=== PATIENT | female | born 1955 | race Caucasian/White ===

== ENCOUNTER 2020-01-28 09:37 | Outpatient (CLI) | payer OTHER, SELFPAY ==
--- NOTE | 2020-01-28 09:49 | US_ITS ---
WS: [id number] RIGHT UPPER QUADRANT ULTRASOUND HISTORY: HX OF PANCREATIC CYSTS COMPARISON: None available. Liver: 14.1 cm in length. Normal size liver. No bile duct dilatation or mass. Gallbladder: Normally distended gallbladder with no stones or wall thickening. CBD: 0.5 cm Pancreas: Mildly echogenic pancreas with lobulated borders. No pseudocyst. Pancreatic duct is normal. Right kidney: 10.4 cm in length. Normal size and echogenicity. No hydronephrosis or mass. Aorta and IVC: Unremarkable abdominal aorta and IVC. No ascites. US/US abdomen limited [id number] IMPRESSION: 1. Echogenic pancreas consistent with chronic pancreatitis. Cannot confirm torres creatic cyst or pseudocyst. For further evaluation CT evaluation may be helpful if these areas need to be followed by imaging. 2. Otherwise negative.
== END 2020-01-28 09:38 | disposition home or self-care (01) ==
LOC: RAD 09:43
PROVIDERS: PCP Nurse Practitioner; Visit Provider Nurse Practitioner
DX: Z87.898 Personal history of other specified conditions (principal)
CPT/HCPCS: 76705

== ENCOUNTER 2020-02-10 08:09 | Outpatient (CLI) | payer OTHER, SELFPAY ==
--- NOTE | 2020-02-10 08:14 | MM_ITS ---
WS: [id number] BILATERAL DIGITAL SCREENING MAMMOGRAPHY WITH CAD CLINICAL INFORMATION: SCREENING HISTORY: Screening mammogram. No current complaints. COMPARISON: None. TECHNIQUE: Bilateral CC and MLO views. FINDINGS: Scattered fibroglandular densities bilaterally. No suspicious focal mass, asymmetry, calcifications, or architectural distortion. No evidence of malignancy. Lucent centered calcifications. Biopsy clip l eft breast. MM/[id number] IMPRESSION: BI-RADS: 2-Benign FOLLOW UP: 1 Year Follow-up Recommend return to annual screening mammography.
== END 2020-02-10 08:10 | disposition home or self-care (01) ==
LOC: RADSHAW 08:11
PROVIDERS: PCP Nurse Practitioner; Visit Provider Nurse Practitioner
DX: Z12.31 Encounter for screening mammogram for malignant neoplasm of breast (principal)
CPT/HCPCS: 77067

== ENCOUNTER 2021-05-24 09:33 | Outpatient (CLI) | payer OTHER, SELFPAY ==
--- NOTE | 2021-05-24 09:41 | MM_ITS ---
WS: [id number] BILATERAL SCREENING DIGITAL MAMMOGRAM WITH CAD HISTORY: SCREENING COMPARISON: 02/10/2020, 09/03/2018 and 05/07/2016 Bilateral CC and MLO views submitted. Computer aided detection analyzed. Breast composition: There are scattered areas of fibroglandular density. No suspicious masses, microc alcifications or architectural distortion. Intramammary lymph node in the posterior RIGHT breast. The re is a nodule with an adjacent biopsy clip 12:00 middle depth LEFT breast. There are benign calcific ations otherwise in each breast. MM/[id number] IMPRESSION: BI-RADS: 2-Benign FOLLOW UP: 1 Year Follow-up
== END 2021-05-24 09:34 | disposition home or self-care (01) ==
LOC: RADSHAW 09:37
PROVIDERS: PCP Nurse Practitioner; Visit Provider Nurse Practitioner
DX: Z12.31 Encounter for screening mammogram for malignant neoplasm of breast (principal)
CPT/HCPCS: 77067

== ENCOUNTER 2021-07-02 09:40 | Outpatient (CLI) | payer OTHER, SELFPAY ==
--- NOTE | 2021-07-02 09:46 | US_ITS ---
WS: [id number] RIGHT UPPER QUADRANT ULTRASOUND HISTORY: ELEVATED LIVER FUNCTION LABS COMPARISON: 01/28/2020 Liver: 15.4 cm in length. Normal size liver. No bile duct dilatation or mass. Portal Vein: Normal hepatopetal flow with monophasic waveform. Gallbladder: Normally distended gallbladder with no stones or wall thickening. CBD: 0.3 cm Pancreas: Pancreatic tail is not visualized. Remaining pancreas is negative. Right kidney: 8.8 cm in length. Normal size and echogenicity. No hydronephrosis or mass. Aorta and IVC: Unremarkable abdominal aorta and IVC. No ascites. US/US abdomen limited [id number] IMPRESSION: 1. Normal gallbladder. 2. Normal size liver with no bile duct dilatation. 3. No abnormality identified.
== END 2021-07-02 09:41 | disposition home or self-care (01) ==
PROVIDERS: PCP Nurse Practitioner; Visit Provider Nurse Practitioner
DX: R94.5 Abnormal results of liver function studies (principal)
CPT/HCPCS: 76705

== ENCOUNTER → 2021-09-19 13:28 | Outpatient (BNVA) | payer OTHER, SELFPAY | PROVIDERS: PCP Nurse Practitioner; Referring Provider Nurse Practitioner; Visit Provider Internal Medicine | DX: R94.6 Abnormal results of thyroid function studies (principal); K58.9 Irritable bowel syndrome, unspecified; F32.A Depression, unspecified; Z87.891 Personal history of nicotine dependence | CPT/HCPCS: 36415; 83516; 84439; 84443; 84480; 86376; 86800; 99204 ==

== ENCOUNTER → 2022-01-21 08:00 | Outpatient (BNVA) | payer OTHER, SELFPAY | PROVIDERS: PCP Nurse Practitioner; Referring Provider Nurse Practitioner; Visit Provider Podiatrist Foot & Ankle Surgery | DX: M21.611 Bunion of right foot (principal); M20.41 Other hammer toe(s) (acquired), right foot; M20.42 Other hammer toe(s) (acquired), left foot; Q82.8 Other specified congenital malformations of skin; G57.62 Lesion of plantar nerve, left lower limb | CPT/HCPCS: 73630; 99203; 99204 ==

== ENCOUNTER 2022-02-11 06:43 | Day surgery (SDC) | payer OTHER, SELFPAY ==
[2022-02-08 09:15] VITALS: BMI 29.7
[2022-02-11 07:08] VITALS: BP 156/89; PULSE 89; RESP 18; TEMP 36.2; O2SAT 97
--- NOTE | 2022-02-11 07:26 | P.ANESASSM_ITS ---
Pre-Anesthetic Assessment Height/Weight: Height 1.7 m Weight 86.183 kg Temp Pulse Resp BP Pulse Ox O2 Del Method 97.1 F L 89 18 156/89 97 02/11/22 07:08 02/11/22 07:08 02/11/22 07:08 02/11/22 07:08 02/11/22 07:08 02/11/22 07:08 Preop Diagnosis: polyps Operation Date: 02/11/22 08:15 Proposed Procedures p Colonoscopy 71529,K58.1,Z86.010(Not Applicable) - Meir Angeles MD Familial anesthetic complications: Has recall during last colonoscopy 5 years ago Was Beta Martha taken within 24 hours: N/A Was Clonidine taken within 24 hours: N/A Last intake: Intake Last Liquid Date 02/10/22 Last Liquid Time 20:00 Last Solid Date 02/09/22 Last Solid Time 16:00 Social No alcohol and No tobacco Exam alert, oriented x 3, clear to auscultation bilaterally and regular rate & rhythm Airway Submandibular: within normal limits Cervical ROM: within normal limits Mallampati: Class I Dentition: full History/ROS No significant complaints Pulmonary None reported CV/HEM None reported None reported Hepatic None reported GI IBS Metabolic None reported Musc/skel Lower Back Pain Neuropsych Depression Anesthetic Plan ASA status: 2 Anesthesia: Anesthesia Evaluation, General and MAC Other: I discussed with the patient risks, goals, and benefits of MAC and general anesthesia. We discussed spectrum of MAC anesthesia including conversion to general as well as possibility of recall of intraoperative stimuli including discomfort/pain. Patient agrees to proceed with MAC. Risk of > 500 ml blood loss (7ml/kg in children): No Medications/Allergies Home Medications Medication Instructions Recorded Confirmed Last Taken Type aripiprazole 5 mg tablet (Abilify) 5 mg PO DAILY 09/19/21 02/08/22 02/10/22 History buspirone 10 mg tablet 10 mg PO BID 09/19/21 02/08/22 02/10/22 History duloxetine 60 mg capsule,delayed 60 mg PO BID 09/19/21 02/08/22 02/10/22 History release prazosin 5 mg capsule 10 mg PO DAILY 09/19/21 02/08/22 02/10/22 History fluticasone propionate 50 1 spray intranasal DAILY 11/13/21 02/08/22 02/10/22 History mcg/actuation nasal spray,suspension (Flonase Allergy Relief) peg 3350-electrolytes 236 240 ml PO Q10M #4,000 mL 01/01/22 02/08/22 02/10/22 Rx gram-22.74 gram-6.74 gram-5.86 gram solution (Golytely) Custom Accommodated Insoles with #1 ea 01/21/22 02/08/22 02/10/22 Rx shoes linaclotide 145 mcg capsule 145 mcg PO DAILY #90 caps 01/28/22 02/08/22 02/10/22 Rx acetaminophen 325 mg capsule 1,000 mg PO QID PRN Pain 02/08/22 02/11/22 02/09/22 History (Tylenol) Allergies Allergy/AdvReac Type Severity Reaction Status Date / Time Iodinated Contrast Media Allergy Unknown Unknown Verified 02/08/22 09:06 iodine Allergy brown mask Verified 02/08/22 09:06 on her povidone-iodine Allergy Unknown Verified 02/08/22 09:06 [From Betadine] [facility] Anesthesia Medical History Depression IBS (irritable bowel syndrome) Family History Father No problems noted. Mother Stroke Aphagia Hypertension Social History Smoking and tobacco status: former smoker Quit status (tobacco): has quit using tobacco Second hand smoke exposure: No Smoking risk assessment/counseling performed?: No Alcohol intake: never Desire information about alcohol rehabilitation?: No Counseling given: No Desire information about substance/drug rehabilitation?: No Counseling given: No Adopted: No Caregiver/support person: No Lives independently: Yes Household members: spouse Housing: House Marital status: Number of children: 3 Highest education level completed: High School Graduate service: Yes Current occupational status: disabled History of recent travel: Yes Data Anesthesia Cardiac Studies: No Data to Display
[2022-02-11] MEDS: sodium chloride 0.9% 1,000 ML 30 ML IV (07:28)
[2022-02-11] MEDS: acetaminophen 1,000 MG/100 ML PIGGYBACK 400 MG IV (08:10)
--- NOTE | 2022-02-11 08:11 | W.PM.OPSFHP ---
Same Day Surgery H&P Indication for Procedure/HPI DATE OF PROCEDURE: February 11, 2022 CHIEF COMPLAINT/INDICATIONFOR SURGICAL PROCEDURE: Personal history of colon polyp PREOP DIAGNOSIS: polyps PLANNED PROCEDURE: Operation Date: 02/11/22 08:15 Proposed Procedures p Colonoscopy 02360,K58.1,Z86.010(Not Applicable) - Meir Angeles MD Medications/Allergies* Home Medications Medication Instructions Recorded Confirmed Type aripiprazole 5 mg tablet (Abilify) 5 mg PO DAILY 09/19/21 02/08/22 History buspirone 10 mg tablet 10 mg PO BID 09/19/21 02/08/22 History duloxetine 60 mg capsule,delayed 60 mg PO BID 09/19/21 02/08/22 History release prazosin 5 mg capsule 10 mg PO DAILY 09/19/21 02/08/22 History fluticasone propionate 50 1 spray intranasal DAILY 11/13/21 02/08/22 History mcg/actuation nasal spray,suspension (Flonase Allergy Relief) acetaminophen 325 mg capsule 1,000 mg PO QID PRN Pain 02/08/22 02/11/22 History (Tylenol) Allergies/Adverse Reactions Allergy/AdvReac Type Severity Reaction Status Date / Time Iodinated Contrast Media Allergy Unknown Unknown Verified 02/08/22 09:06 iodine Allergy brown mask Verified 02/08/22 09:06 on her povidone-iodine Allergy Unknown Verified 02/08/22 09:06 [From Betadine] Current Medications: Generic Name Dose Route Start Last Admin Trade Name Freq PRN Reason Stop Dose Admin Sodium Chloride 1,000 mls @ 30 mls/hr 02/11/22 07:00 02/11/22 07:28 Sodium Chloride 0.9% IV 30 mls/hr .Q24H LUCINDA Administration Pertinent History/Comorbid Conditions* Medical History (Updated 12/26/21 @ 10:12 by Meir Angeles MD) Depression IBS (irritable bowel syndrome) Family History (Updated 09/19/21 @ 13:47 by Nayeli Gama LPN) Father Aphagia Mother Hypertension Mother Stroke Mother Social History Smoking and tobacco status: former smoker Quit status (tobacco): has quit using tobacco Second hand smoke exposure: No Smoking risk assessment/counseling performed?: No Alcohol intake: never Desire information about alcohol rehabilitation?: No Counseling given: No Desire information about substance/drug rehabilitation?: No Counseling given: No Adopted: No Caregiver/support person: No Lives independently: Yes Household members: spouse Housing: House Marital status: Number of children: 3 Highest education level completed: High School Graduate service: Yes Current occupational status: disabled History of recent travel: Yes Pertinent Exam Findings alert, oriented x 3, clear to auscultation bilaterally, regular rate & rhythm, operative site marked and procedure specific exam findings Recommendations Surgery/Procedure today Coding Level of Care Code Acute Public Health Technician for Jesus Alvarez
[2022-02-11 09:15] VITALS: BP 149/80; PULSE 72; RESP 21; TEMP 36.2; O2SAT 95
--- NOTE | 2022-02-11 09:18 | ANE.PACU2 ---
Inpatient post-anesthesia follow up: Airway intact: Yes Vital signs: Temperature 97.1 F Pulse Rate 89 Respiratory Rate 18 Blood Pressure 156/89 Pulse Oximetry 97 Oxygen Delivery Me thod Room Air Oxygen Flow Rate Fraction of Inspir ed Oxygen Hydration adequate: Yes Nausea and vomiting: No Pain level: 1 Mental status: Baseline
[2022-02-11 09:23] VITALS: BP 151/73; PULSE 66; RESP 18; O2SAT 94
[2022-02-11 09:32] VITALS: BP 119/88; PULSE 70; RESP 18; O2SAT 98
== END 2022-02-11 09:49 | disposition home or self-care (01) ==
PROVIDERS: PCP Nurse Practitioner; Visit Provider Internal Medicine
PROC: 0DJD8ZZ Inspection of Lower Intestinal Tract, Via Natural or Artificial Opening Endoscopic (ICD-10-PCS; CPT 45378; principal; 2022-02-11 08:15)
DX: Z12.11 Encounter for screening for malignant neoplasm of colon (principal); Z86.010 Personal history of colon polyps; K58.1 Irritable bowel syndrome with constipation; Z87.891 Personal history of nicotine dependence
CPT/HCPCS: 45378; J2704; J7030

== ENCOUNTER 2022-07-03 12:07 | Outpatient (CLI) | payer OTHER, SELFPAY ==
--- NOTE | 2022-07-03 12:21 | CT_ITS ---
WS: [id number] CT HEAD TECHNIQUE: Noncontrast CT of the head obtained from the skullbase to the vertex. CLINICAL INFORMATION: NEW ONSET VERTIGO COMPARISON: None. DLP: 1018.[address] scans at [facility] use at least one of these dose optimization techniques: automated e xposure control; mA and/or kV adjustment per patient size (includes targeted exams where dose is matc hed to clinical indication); or iterative reconstruction. FINDINGS: No evidence of intracranial hemorrhage or mass effect. Ventricular system and basal cisterns are george nt. Mild small vessel changes with moderate parenchymal volume loss worse in the frontal lobes bilate rally. No extra-axial fluid collections. No evidence of mass or mass effect. Vascular calcification. Paranasal sinuses and mastoid air cells are well aerated. .Normal visualized soft tissues. CT/CT head wo con* [id number] IMPRESSION: 1. No evidence of intracranial hemorrhage or mass effect. 2. Mild small vessel changes with moderate parenchymal volume loss worse in th e frontal lobes bilaterally. 3. No acute intracranial findings.
== END 2022-07-03 12:08 | disposition home or self-care (01) ==
LOC: RAD 12:12
PROVIDERS: PCP Nurse Practitioner; Visit Provider Nurse Practitioner
DX: R42 Dizziness and giddiness (principal)
CPT/HCPCS: 70450

== ENCOUNTER 2022-07-22 13:22 | Outpatient (CLI) | payer OTHER, SELFPAY ==
--- NOTE | 2022-07-22 13:36 | XR_ITS ---
WS: [id number] DEXA (DUAL ENERGY X-RAY ABSORPTIOMETRY) Bone mineral density was performed using a [employer] machine. HISTORY: OSTEOPOROSIS SCREENING COMPARISON: None available. Lumbar spine BMD (L1-L4): 1.121 g/cm2 T score: -0.5 Z score: 0.0 Total hip BMD: Left: 0.726 g/cm2. T score: -2.2 Z score: -1.8 Right: 0.808 g/cm2. T score: -1.6 Z score: -1.1 10 year probability of a major osteoporotic fracture is 34.8%. LEFT curvature lumbar spine with asymmetric disc space narrowing along the concavity. XR/XR DEXA axial skeleton* [id number] IMPRESSION: OSTEOPENIA based upon the WHO classification for females.
== END 2022-07-22 13:23 | disposition home or self-care (01) ==
LOC: RAD 13:24
PROVIDERS: PCP Nurse Practitioner; Visit Provider Nurse Practitioner
DX: Z13.820 Encounter for screening for osteoporosis (principal); M85.80 Other specified disorders of bone density and structure, unspecified site
CPT/HCPCS: 77080

== ENCOUNTER 2023-10-13 10:53 | Outpatient (CLI) | payer OTHER, SELFPAY ==
--- NOTE | 2023-10-13 11:03 | MM_ITS ---
WS: [id number] BILATERAL SCREENING DIGITAL TOMOSYNTHESIS MAMMOGRAM WITH CAD HISTORY: SCREENING COMPARISON: 05/24/2021, 02/10/2020 Bilateral CC and MLO views with tomosynthesis and synthetic mammography submitted. Computer aided det ection analyzed. Breast composition: There are scattered areas of fibroglandular density. No suspicious masses, microc alcifications or architectural distortion. Biopsy clip in the central LEFT breast. There is no associ ated mass which is stable. There are benign calcifications in each breast. MM/[place] [id number] IMPRESSION: BI-RADS: 2-Benign FOLLOW UP: 1 Year Follow-up
== END 2023-10-13 10:54 | disposition home or self-care (01) ==
LOC: RAD 10:54
PROVIDERS: PCP Nurse Practitioner; Visit Provider Nurse Practitioner
DX: Z12.31 Encounter for screening mammogram for malignant neoplasm of breast (principal); R92.323 Mammographic fibroglandular density, bilateral breasts; R92.1 Mammographic calcification found on diagnostic imaging of breast
CPT/HCPCS: 77063; 77067

== ENCOUNTER → 2024-01-26 10:13 | Outpatient (BNVA) | payer OTHER, SELFPAY | PROVIDERS: PCP Nurse Practitioner; Visit Provider Nurse Practitioner | DX: M65.331 Trigger finger, right middle finger (principal) | CPT/HCPCS: 99204 ==

== ENCOUNTER 2024-02-05 13:26 | Outpatient (CLI) | payer OTHER, SELFPAY ==
[2024-02-05 14:00] LABS: Bilirubin Urine Negative (Negative); Blood Urine Negative (Negative); Glucose Urine UA Negative (Normal); Ketones Urine Negative (Negative); Leukocyte Esterase Urine Negative (Negative); Nitrate Urine Negative (Negative); Protein Urine Negative (Negative); Specific Gravity, Urine 1.014 (1.005-1.030); Urine Appearance Clear (CLEAR); Urine Color Dark Yellow (Yellow); pH Urine 5.5 (5-7)
[2024-02-05 14:00] LABS: Basophils # 0.1 10^3/uL (0.0-0.1); Eosinophils # 0.2 10^3/uL (0.0-0.8); Eosinophils % 2.3 %; Hematocrit 40.8 % (36-47); Lymphocytes # 2.3 10^3/uL (0.8-4.8); Lymphocytes % 29.6 %; Mean Corpuscular HGB Conc 33.1 g/dL (30-55); Mean Corpuscular Hemoglobin 30.6 pg (27-33); Mean Corpuscular Volume 92.5 fl (85-98); Mean Platelet Volume 10.4 fL (7.4-10.4); Monocytes # 0.7 10^3/uL (0.2-0.9); Monocytes % 9.1 %; Neutrophils % 57.7 %; Nucleated Red Blood Cells % 0 %; Platelet Count 245 10^3/cmm (157-399); Red Blood Count 4.41 10^6/uL (3.85-5.65); Red Cell Distribution Width 12.9 % (12.1-15.1)
[2024-02-05 14:04] LABS: Alanine Aminotransferase 21 U/L (0-33); Albumin Level 3.8 g/dL (3.5-5.2); Alkaline Phosphatase 45 U/L (35-105); Anion Gap 13.6 (5-19); Aspartate Amino Transferase 18 U/L (0-32); Blood Urea Nitrogen 20 mg/dL (8-23); Calcium 8.6 mg/dL (8.5-10.5); Carbon Dioxide 27 mmol/L (22-29); Chloride 104 mmol/L (98-107); Globulin 2.8 g/dL (1.3-4.6); Glomerular Filtration Rate 49.5 mL/min (90-130); Glucose 104 mg/dL (65-115); Osmolality Calculated 293 mOsm/kg (285-295); Potassium 4.6 mmol/L (3.5-5.1); Sodium 140 mmol/L (136-145); Total Bilirubin 0.2 mg/dL (0.15-1.2); Total Protein 6.6 g/dL (6.6-8.7)
[2024-02-05 14:05] LABS: Add Urine Microscopic? YES; Bacteria Urine None Seen /hpf; Hyaline Casts Urine 1.21 /lpf; RBC Urine 0-2 /hpf (0-2); Squamous Epithelial Cell Urine 0-5 /hpf (0-5); WBC Urine 0-5 /hpf (0-5)
== END 2024-02-05 13:27 | disposition home or self-care (01) ==
LOC: LAB 13:26
PROVIDERS: PCP Nurse Practitioner; Visit Provider Nurse Practitioner
DX: M79.643 Pain in unspecified hand (principal)
CPT/HCPCS: 36415; 80053; 81001; 85025

== ENCOUNTER 2024-02-10 05:43 | Day surgery (SDC) | payer OTHER, SELFPAY ==
[2024-02-10] VITALS (10 sets, daily range): BP systolic 100–135; BP diastolic 67–88; PULSE 71–83; RESP 14–22; TEMP 36.1–36.6; O2SAT 93–98; BMI 34.0
[2024-02-10] MEDS: acetaminophen 1,000 MG/100 ML PIGGYBACK 400 MG IV (06:16)
[2024-02-10] MEDS: sodium chloride 0.9% 1,000 ML 30 ML IV (06:16)
--- NOTE | 2024-02-10 06:33 | ANES.PREANE2 ---
Pre-Anesthetic Assessment Height/Weight: Height 5 ft 7 in Weight 217 lb Temp Pulse Resp BP Pulse Ox O2 Del Method 97.4 F L 80 18 135/85 98 Room Air 02/10/24 06:06 02/10/24 06:06 02/10/24 06:06 02/10/24 06:06 02/10/24 06:06 02/10/24 06:06 Preop Diagnosis: Trigger finger Operation Date: 02/10/24 07:00 Proposed Procedures p right hand long finger trigger finger release(Right) - Shaista Solano MD Was Beta Martha taken within 24 hours: Yes Was Clonidine taken within 24 hours: N/A Last intake: Intake Last Liquid Date 02/09/24 Last Liquid Time 21:00 Last Solid Date 02/09/24 Last Solid Time 20:00 Social No alcohol and No tobacco Exam alert, oriented x 3, clear to auscultation bilaterally and regular rate & rhythm Airway Submandibular: within normal limits Cervical ROM: within normal limits Mallampati: Class II Dentition: other (Few missing teeth) Anesthetic Plan ASA status: 2 Anesthesia: General Other: Patient reports being slow to wake up during surgery, insistent she does not want twilight anesthesia NPO since midnight History of hypertension, on propranolol. AM dose taken Patient does have a bladder stimulator in her lower back. Will remain on for procedure Labs reviewed 02/04 and acceptable for procedure METs greater than 4 Plan for general anesthesia with LMA and local via surgeon Medications/Allergies Home Medications Medication Instructions Recorded Confirmed Last Taken Type buspirone 10 mg tablet 10 mg PO BID 09/19/21 02/09/24 02/09/24 History duloxetine 60 mg capsule,delayed 60 mg PO BID 09/19/21 02/09/24 02/09/24 History release prazosin 5 mg capsule 10 mg PO DAILY 09/19/21 02/09/24 02/08/24 History Custom Accommodated Insoles with #1 ea 01/21/22 01/26/24 02/10/22 Rx shoes acetaminophen 325 mg capsule 1,000 mg PO QID PRN Pain 02/08/22 02/09/24 02/09/22 History (Tylenol) acyclovir 200 mg capsule 200 mg PO QID 02/09/24 02/09/24 02/09/24 History bupropion HCl 150 mg 24 hr tablet, 150 mg PO QAM 02/09/24 02/09/24 02/09/24 History extended release propranolol 10 mg tablet 10 mg PO BID 02/09/24 02/10/24 02/10/24 06:20 History Allergies Allergy/AdvReac Type Severity Reaction Status Date / Time Iodinated Contrast Media Allergy Unknown Unknown Verified 01/26/24 10:31 iodine Allergy brown mask Verified 01/26/24 10:31 on her povidone-iodine Allergy Unknown Verified 01/26/24 10:31 [From Betadine] Current Medications Generic Name Dose Route Start Last Admin Trade Name Freq PRN Reason Stop Dose Admin Sodium Chloride 1,000 mls @ 30 mls/hr 02/10/24 06:00 02/10/24 06:16 Sodium Chloride 0.9% IV 02/11/24 05:59 30 mls/hr .Q24H LUCINDA Administration PFSH Anesthesia Medical History (Updated 02/01/24 @ 14:44 by RANI Velarde) Trigger finger, right middle finger Depression IBS (irritable bowel syndrome) Family History Father No problems noted. Mother Stroke Aphagia Hypertension Social History Smoking and tobacco/nicotine status: former use of tobacco/nicotine Quit status (tobacco/nicotine): has quit using Second hand smoke exposure: No Alcohol intake: never Substance/Drug Use: current Substance/Drug use frequency: few times a month Adopted: No Caregiver/support person: No Lives independently: Yes Household members: spouse Housing: House Marital status: Number of children: 3 Highest education level completed: High School Graduate service: Yes Current occupational status: disabled Data Anesthesia Cardiac Studies: No Data to Display
--- NOTE | 2024-02-10 06:53 | P.HPUD_ITS ---
Surgery/Procedure H&P Update DATE OF PROCEDURE: February 10, 2024 DATE H&P PERFORMED: 01/26/24 H&P UPDATE INFORMATION: I have reviewed H&P completed within last 30 days, I have examined patient prior to procedure, No changes to prior documentation and H&P is in [facility] EMR on date indicated PREOP DIAGNOSIS: Trigger finger PLANNED PROCEDURE: Operation Date: 02/10/24 07:00 Proposed Procedures p right hand long finger trigger finger release(Right) - Shaista Solano MD Related Problem List Diagnoses (1) Trigger finger, right middle finger:
[2024-02-10] MEDS: ceFAZolin 2,000 mg SDV 2000 MG IVP (06:59)
[2024-02-10] MEDS: BUPivacaine 0.5% INJ 30 mL XX (07:30)
--- NOTE | 2024-02-10 07:46 | P.OP_ITS ---
Operative Report Date of procedure: February 10, 2024 Pre-op diagnosis: Right long finger triggering Post-op diagnosis: Right long finger triggering Post-op findings: Significant thickening of the A1 prudence Procedure done: Right long finger trigger release Implants: None Specimens removed/disposition: None Surgeon: Shaista Solano MD Special Education Supervisor: None Anesthesia: General (Per LMA, ASA 2) Estimated blood loss (mL): 2 Tourniquet time (min): 13 (At 250 mmHg) IV fluids (mL): 500 Urine output (mL): 0 (No Godoy) Complications: None Findings: Significant inflammation around the A1 prudence with thickening Condition: stable Disposition: PACU (Then return to same-day surgery for discharge to home) Brief History: This 68-year-old woman presented to the office complaining of triggering of her right long finger. About 2 months prior to being seen. The pain started below her long finger and she stated the finger began sticking. After evaluation and discussion in the office, and given how painful the trigger finger was, surgical intervention was discussed with the patient. She had been taking anti- inflammatory as well as doing stretches without success. Therefore, surgery was discussed and approved. The patient wished to proceed. Consents were signed and questions were answered. Procedure: Patient was brought to the operating theater. She was placed on the operating room table. A general anesthetic per LMA was administered, ASA 2, uneventfully. Additionally, Ancef 2 g was given preoperatively and prophylactically. The arm was exsanguinated, and tourniquet was elevated to 250 mmHg for a total tourniquet time of 13 minutes. Surgical pause was performed prior to commencement of the surgical procedure. At the time of the surgical pause we identified the site and side of surgery. We also identified the patient's identity and appropriate administration of IV antibiotics. Following the surgical pause, an incision was made along the distal palmar crea se beneath the long finger. Dissection continued through the skin to the subcutaneous tissues using a scalpel. Blunt dissection was then utilized to spread soft tissues and allow access to the A1 prudence. It was then incised longitudinally and sharply using a knife. This was accomplished without difficulty and atraumatically. Once the A1 prudence was released, flexor tendons were brought up out of the wound and evaluated. There were no gross masses on the tendons, but there was some fraying consistent with triggering. Tendons were returned to normal position. We then irrigated the wound and subsequently closed it with 3-0 nylon with an interrupted mattress type suture. Following closure of the wound, the wound was irrigated and injected with bupivacaine into the subcutaneous tissues as a local anesthetic. Sterile dressing was then placed consisting of Dermabond, OpSite, fluffed fluffs, sterile soft roll, and an Kervin wrap. The patient was returned to recovery in satisfactory condition. She will be discharged home to follow-up in the office. There were no complications and no specimens. Related Problem List Diagnoses (1) Trigger finger, right middle finger:
--- NOTE | 2024-02-10 08:55 | ANE.PACU2 ---
Inpatient post-anesthesia follow up: Airway intact: Yes Vital signs: Temperature 97.9 F Pulse Rate 72 Respiratory Rate 17 Blood Pressure 114/67 Pulse Oximetry 97 Oxygen Delivery Me thod Room Air Oxygen Flow Rate Fraction of Inspir ed Oxygen Hydration adequate: Yes Nausea and vomiting: No Pain level: 1 Mental status: Baseline
== END 2024-02-10 08:55 | disposition home or self-care (01) ==
PROVIDERS: PCP Nurse Practitioner; Visit Provider Specialist
PROC: (CPT 26055; principal; 2024-02-10 07:00)
DX: M65.331 Trigger finger, right middle finger (principal); I10 Essential (primary) hypertension; F32.A Depression, unspecified; Z87.891 Personal history of nicotine dependence
CPT/HCPCS: 26055; J0131; J0690; J1100; J2405; J2704; J3010; J3490; J7030

== ENCOUNTER → 2024-02-23 10:15 | Outpatient (BNVA) | payer OTHER, SELFPAY | PROVIDERS: PCP Nurse Practitioner; Visit Provider Nurse Practitioner | DX: Z98.890 Other specified postprocedural states (principal) | CPT/HCPCS: 99024 ==

== ENCOUNTER → 2024-03-16 11:06 | Outpatient (BNVA) | payer OTHER, SELFPAY | PROVIDERS: PCP Nurse Practitioner; Referring Provider Nurse Practitioner; Visit Provider Specialist | DX: G56.03 Carpal tunnel syndrome, bilateral upper limbs (principal) | CPT/HCPCS: 95910 ==

== ENCOUNTER → 2024-04-26 09:37 | Outpatient (BNVA) | payer OTHER, SELFPAY | PROVIDERS: PCP Nurse Practitioner; Visit Provider Specialist | DX: G56.03 Carpal tunnel syndrome, bilateral upper limbs; Z01.818 Encounter for other preprocedural examination | CPT/HCPCS: 36415; 73110; 80053; 81001; 85025; 99215 ==

== ENCOUNTER 2024-05-13 05:48 | Day surgery (SDC) | payer OTHER, SELFPAY ==
[2024-05-13] VITALS (9 sets, daily range): BP systolic 96–164; BP diastolic 61–95; PULSE 67–74; RESP 16–18; TEMP 36.3–36.4; O2SAT 95–100; BMI 36.2
[2024-05-13] MEDS: acetaminophen 1,000 MG/100 ML PIGGYBACK 400 MG IV (06:20)
[2024-05-13] MEDS: sodium chloride 0.9% 1,000 ML 30 ML IV (06:30)
--- NOTE | 2024-05-13 07:02 | W.PM.OPSUD ---
Surgery/Procedure H&P Update DATE OF PROCEDURE: May 13, 2024 DATE H&P PERFORMED: 04/26/24 H&P UPDATE INFORMATION: I have reviewed H&P completed within last 30 days, I have examined patient prior to procedure, No changes to prior documentation and H&P is in [facility] EMR on date indicated PLANNED PROCEDURE: Operation Date: 05/13/24 07:00 Proposed Procedures p Carpal Tunnel Release(Right) - Shaista Solano MD Related Problem List Diagnoses (1) Carpal tunnel syndrome on right:
[2024-05-13] MEDS: CELEcoxib 200 mg Capsule 400 MG PO (07:04)
[2024-05-13] MEDS: ceFAZolin 2,000 mg SDV 2000 MG IVP (07:04)
--- NOTE | 2024-05-13 07:06 | ANES.PREANE2 ---
Pre-Anesthetic Assessment Height/Weight: Height 1.65 m Weight 98.883 kg Operation Date: 05/13/24 07:00 Proposed Procedures p Carpal Tunnel Release(Right) - Shaista Solano MD Familial anesthetic complications: Slow to wake Resistant to twilight anesthesia - I still feel everything Was Beta Martha taken within 24 hours: N/A Was Clonidine taken within 24 hours: N/A Last intake: > 8 hrs Social No alcohol and No tobacco Exam alert, oriented x 3, clear to auscultation bilaterally and regular rate & rhythm Airway Mallampati: Class II Dentition: other (missing) CV/HEM Hypertension bladder stim Metabolic Morbid Obesity Anesthetic Plan ASA status: 3 Anesthesia: General Risk of > 500 ml blood loss (7ml/kg in children): No Medications/Allergies Home Medications Medication Instructions Recorded Confirmed Last Taken Type buspirone 10 mg tablet 10 mg PO BID 09/19/21 05/13/24 05/12/24 History duloxetine 60 mg capsule,delayed 60 mg PO BID 09/19/21 05/13/24 05/12/24 History release prazosin 5 mg capsule 10 mg PO DAILY 09/19/21 05/13/24 05/12/24 History Custom Accommodated Insoles with #1 ea 01/21/22 04/26/24 02/10/22 Rx shoes acetaminophen 325 mg capsule 1,000 mg PO BEDTIME 02/08/22 05/11/24 05/10/24 History (Tylenol) acyclovir 200 mg capsule 400 mg PO BID 02/09/24 05/13/24 05/12/24 History bupropion HCl 150 mg 24 hr tablet, 150 mg PO QAM 02/09/24 05/13/24 05/12/24 History extended release propranolol 10 mg tablet 10 mg PO BID 02/09/24 05/13/24 05/12/24 History alendronate 70 mg tablet (Fosamax) 70 mg PO DIRECTED 05/11/24 05/13/24 05/12/24 History Allergies Allergy/AdvReac Type Severity Reaction Status Date / Time Iodinated Contrast Media Allergy Unknown Unknown Verified 05/11/24 11:32 iodine Allergy brown mask Verified 05/11/24 11:32 on her povidone-iodine Allergy Unknown Verified 05/11/24 11:32 [From Betadine] Current Medications Generic Name Dose Route Start Last Admin Trade Name Carmineq PRN Reason Stop Dose Admin Sodium Chloride 1,000 mls @ 30 mls/hr 05/13/24 06:00 05/13/24 06:30 Sodium Chloride 0.9% IV 05/14/24 05:59 30 mls/hr .Q24H LUCINDA Administration PFSH Anesthesia Medical History Trigger finger, right middle finger Depression IBS (irritable bowel syndrome) Surgical History S/P trigger finger release Date of procedure: February 10, 2024 Pre-op diagnosis: Right long finger triggering Procedure done: Right long finger trigger release Surgeon: Shaista Solano MD Family History Father No problems noted. Mother Stroke Aphagia Hypertension Social History Smoking and tobacco/nicotine status: former use of tobacco/nicotine Quit status (tobacco/nicotine): has quit using Second hand smoke exposure: No Alcohol intake: never Substance/Drug Use: current Substance/Drug use frequency: few times a month Adopted: No Caregiver/support person: No Lives independently: Yes Household members: spouse Housing: House Marital status: Number of children: 3 Highest education level completed: High School Graduate service: Yes Current occupational status: disabled Data Anesthesia Cardiac Studies: No Data to Display
[2024-05-13] MEDS: BUPivacaine 0.5% INJ 30 mL XX (07:28)
--- NOTE | 2024-05-13 08:27 | P.OP_ITS ---
Operative Report Date of procedure: May 13, 2024 Pre-op diagnosis: Right carpal tunnel syndrome Post-op diagnosis: Right carpal tunnel syndrome Post-op findings: Significant compression across the carpal canal Procedure done: Right carpal tunnel release Implants: None Specimens removed/disposition: None Pathology: None Surgeon: Shaista Solano MD Flatbed Press Operator: None Anesthesia: General (Per LMA, ASA 3) Estimated blood loss (mL): 3 Tourniquet time (min): 20 (At 250 mmHg) IV fluids (mL): 200 Urine output (mL): 0 (No Godoy) Complications: None Findings: Significant compression across the carpal canal Condition: stable Disposition: PACU (Then return to same-day surgery for discharge to home) Brief History: This 68-year-old woman presented with complaints of numbness in the hand consistent with carpal tunnel syndrome. She also had bilateral sharp throbbing pain. The right was worse than the left. After nerve conduction studies demonstrated compression across both median nerves at the wrist with normal ulnar nerves, plans were made for operative release. Risks and complications were discussed with the patient. Consents were signed and questions were answe red. Procedure: The patient was brought to the operating theater. The patient had a general anesthesia per LMA, ASA 3. The tourniquet was elevated to 250 mmHg for a total tourniquet time of 20 minutes. The patient was also given Ancef 2 g preoperatively. The arm was then prepped and draped with DuraPrep in usual fashion with the arm draped free. A surgical pause was performed. At the time, the surgical pause, we confirmed the site and side of surgery. We also confirmed the patient's identity, appropriate and timely administration of preoperative antibiotics and preoperative surgical markings. An incision was then made along the thenar crease. The incision crossed the wrist joint in a curvilinear fashion. Dissection continued through skin and soft tissues using a scalpel. The palmaris longus was identified along with the transverse carpal ligament. Each of these was released carefully to avoid injury to the median nerve. We were able to dissect gently into the carpal canal which was noted to be quite tight with significant compression across the median nerve. The nerve was visualized and had a slightly purplish discoloration. Foll owing this release, the canal was subsequently palpated to assure there was no bony encroachment upon the canal. The canal was then palpated distally and proximally to assure that my small finger was passed easily without impingement. Finding this to be so, attention was directed to closure. The wound was irrigated with ropivacaine plain. It was then closed with 3-0 nylon in an interrupted mattress fashion. Sterile dressing was then placed consisting of Dermabond, OpSite, fluffed fluffs, sterile soft roll, and an Kervin wrap. The tourniquet was released after 20 minutes. There were no complications. There were no specimens. The procedure was well tolerated. Plan is the patient will be discharged home. Related Problem List Diagnoses (1) Carpal tunnel syndrome on right:
[2024-05-13] MEDS: HYDROcodone-acetaminophen 5-325 mg Tablet 1 TAB PO (08:44)
--- NOTE | 2024-05-13 09:23 | PC.NURSE ---
Pt with c/o having difficulty with her eyes trying to focus once she was on out patients from pacu, kept patient sitting up in bed, vitals signs stable, pt states right arm is numb, notified anesthesia of pts concerns.
--- NOTE | 2024-05-13 09:50 | ANE.PACU2 ---
Inpatient post-anesthesia follow up: Airway intact: Yes Vital signs: Temperature 97.3 F Pulse Rate 70 Respiratory Rate 16 Blood Pressure 155/76 Pulse Oximetry 96 Oxygen Delivery Me thod Room Air Oxygen Flow Rate 8 Fraction of Inspir ed Oxygen Hydration adequate: Yes Nausea and vomiting: No Pain level: 1 Mental status: Baseline
== END 2024-05-13 09:50 | disposition home health service (06) ==
PROVIDERS: PCP Nurse Practitioner; Visit Provider Specialist
PROC: (CPT 64721; principal; 2024-05-13 07:00)
DX: G56.01 Carpal tunnel syndrome, right upper limb (principal); I10 Essential (primary) hypertension; E66.01 Morbid (severe) obesity due to excess calories; Z68.36 Body mass index [BMI] 36.0-36.9, adult; Z87.891 Personal history of nicotine dependence
CPT/HCPCS: 64721; J0131; J0690; J1100; J2250; J2371; J2405; J2704; J3010; J3490; J7030

== ENCOUNTER → 2024-05-28 10:46 | Outpatient (BNVA) | payer OTHER, SELFPAY | PROVIDERS: PCP Nurse Practitioner; Visit Provider Nurse Practitioner | DX: Z98.890 Other specified postprocedural states (principal); L03.113 Cellulitis of right upper limb; L02.511 Cutaneous abscess of right hand | CPT/HCPCS: 99024 ==

== ENCOUNTER → 2024-06-09 14:06 | Outpatient (BNVA) | payer OTHER, SELFPAY | PROVIDERS: PCP Nurse Practitioner; Visit Provider Nurse Practitioner | DX: Z01.818 Encounter for other preprocedural examination (principal); Z98.890 Other specified postprocedural states | CPT/HCPCS: 80053; 85025; 99024 ==

== ENCOUNTER → 2024-11-26 09:52 | Outpatient (BNVA) | payer OTHER, SELFPAY | PROVIDERS: PCP Nurse Practitioner; Visit Provider Nurse Practitioner | DX: G56.02 Carpal tunnel syndrome, left upper limb (principal); M65.342 Trigger finger, left ring finger | CPT/HCPCS: 99214 ==

== ENCOUNTER → 2024-12-10 11:03 | Outpatient (BNVA) | payer OTHER, SELFPAY | PROVIDERS: PCP Nurse Practitioner; Visit Provider Specialist | DX: G56.02 Carpal tunnel syndrome, left upper limb (principal) | CPT/HCPCS: 80053; 85025 ==

== ENCOUNTER → 2024-12-15 10:06 | Outpatient (BNVA) | payer OTHER, SELFPAY | PROVIDERS: PCP Nurse Practitioner; Visit Provider Family Medicine | DX: Z01.818 Encounter for other preprocedural examination (principal) | CPT/HCPCS: 93005 ==

== ENCOUNTER → 2024-12-20 08:48 | Outpatient (BNVA) | payer OTHER, SELFPAY | PROVIDERS: PCP Nurse Practitioner; Visit Provider Nurse Practitioner | DX: G56.02 Carpal tunnel syndrome, left upper limb (principal); M65.342 Trigger finger, left ring finger | CPT/HCPCS: 99214 ==

== ENCOUNTER → 2025-02-18 10:35 | Outpatient (BNVA) | payer OTHER, SELFPAY | PROVIDERS: PCP Nurse Practitioner; Referring Provider Nurse Practitioner; Visit Provider Internal Medicine | DX: R79.89 Other specified abnormal findings of blood chemistry (principal); M81.0 Age-related osteoporosis without current pathological fracture; N18.9 Chronic kidney disease, unspecified | CPT/HCPCS: 99204 ==

== ENCOUNTER 2025-04-25 09:22 | Outpatient (CLI) | payer OTHER, SELFPAY ==
--- NOTE | 2025-04-25 09:28 | US_ITS ---
WS: [id number] RIGHT UPPER QUADRANT ULTRASOUND HISTORY: ELEVATED LIVER ENZYMES COMPARISON: 07/02/2021 Liver: 13.5 cm in length. Liver is normal size. Surface of the liver is very slightly nodular which is new suggesting there may be a component of cirrhosis. No mass or intrahepatic duct dilatation. Portal Vein: Normal hepatopetal flow with monophasic waveform. Gallbladder: Normally distended gallbladder with no stones or wall thickening. CBD: 0.4 cm Pancreas: Completely obscured by bowel gas. Right kidney: 8.4 cm in length. RIGHT kidney is poorly visualized. No obstruction or mass identified. Aorta and IVC: Limited. No ascites. US/US abdomen limited [id number] IMPRESSION: 1. Normal gallbladder. 2. Normal size liver. Surface irregularity suggest there may be a component of cirrhosis. New since 07/02/2021. 3. Poorly visualized pancreas and RIGHT kidney.
== END 2025-04-25 09:23 | disposition home or self-care (01) ==
LOC: RAD 09:24
PROVIDERS: PCP Nurse Practitioner; Visit Provider Nurse Practitioner
DX: R79.89 Other specified abnormal findings of blood chemistry (principal)
CPT/HCPCS: 76705